=== PATIENT | female | born 1980 | race Caucasian/White ===

== ENCOUNTER 2017-02-08 16:10 | Inpatient (IN) | payer BC ==
[~2017-02-08] VITALS: Ht 177.8 cm; Wt 93.0 kg
[2017-02-08] VITALS (10 sets, daily range): BP systolic 100–124; BP diastolic 52–78
[~2017-02-08 16:10] MED LIST: COLACE100 MG PO; IBUPROFEN800 MG PO; OXYCODONE-ACET1 EACH PO; PRENATAL TABLE1 EAC3 PO
[2017-02-08 17:05] LABS: EOSINOPHIL (%) 0.8 % (0-5); EOSINOPHIL COUNT 0.1 K/uL (0-0.3); IMMATURE GRANULOCYTE (%) 0.6 % (0.0-0.7); IMMATURE GRANULOCYTE COUNT 0.1 K/uL; INSTRUMENT ABS NEUTROPHIL CT 10.5 K/uL; LYMPHOCYTE COUNT 1.5 K/uL (1.0-2.8); MCH 30.5 PG (29.0-34.0); MCHC 34.4 G/DL (30.0-36.0); MCV 88.6 FL (83-99); MEAN PLAT.VOLUME 11.8 uM^3 (9.5-12.4); MONOCYTE (%) 7.3 % (3-12); NEUTROPHIL (%) 79.8 % (45-76); NEUTROPHIL COUNT 10.5 K/uL (1.8-6.4); PLATELET COUNT 227 K/uL (156-360); RBC DIS.WIDTH-CV 13.2 % (11.8-14.6); RBC DIS.WIDTH-SD 43.1 % (39-53); RED BLOOD COUNT 4.63 M/uL (3.80-5.20); WHITE BLOOD COUNT 13.1 K/uL (4.1-10.2)
[2017-02-08] MEDS ORDERED: IBUPROFEN800 MG PO (18:34)
[2017-02-09 07:26] VITALS: BP 103/66
[2017-02-09 23:16] VITALS: BP 100/66
[2017-02-10 11:07] VITALS: BP 111/58
[2017-02-10 15:10] VITALS: BP 117/66
== END 2017-02-10 16:06 | disposition home or self-care (01) | DRG 775 ==
LOC: LDRP-OP 16:10 → 2WEST 16:11 → LDRP-OP 03-04 14:25
PROVIDERS: Midwife
PROC: 10E0XZZ Delivery of Products of Conception, External Approach (ICD-10-PCS; principal; 2017-02-08)
DX: O48.0 Post-term pregnancy (principal); O70.0 First degree perineal laceration during delivery; O99.824 Streptococcus B carrier state complicating childbirth; O76 Abnormality in fetal heart rate and rhythm complicating labor and delivery; O09.523 Supervision of elderly multigravida, third trimester; Z3A.41 41 weeks gestation of pregnancy; Z37.0 Single live birth; Z87.891 Personal history of nicotine dependence; O69.81X1 Labor and delivery complicated by cord around neck, without compression, fetus 1; Z09 Encounter for follow-up examination after completed treatment for conditions other than malignant neoplasm
CPT/HCPCS: 85025; J0290; J7050